=== PATIENT | female | born 1990 | race Caucasian/White ===

== ENCOUNTER → 2016-07-12 | Outpatient (REF) | payer BC, OTHER | LOC: M LAB REF 15:37 | PROVIDERS: ATTEND Family Medicine | DX: Z12.4 Encounter for screening for malignant neoplasm of cervix (principal) ==

== ENCOUNTER → 2017-02-17 | Outpatient (REF) | payer OTHER | LOC: M LAB REF 09:18 | PROVIDERS: ATTEND Physician Assistant | DX: J02.9 Acute pharyngitis, unspecified (principal) ==

== ENCOUNTER → 2017-02-28 | Outpatient (CLI) | payer BC, OTHER ==
--- NOTE | 2017-03-04 16:57 | REP ---
ULTRASOUND LEFT BREAST: Real-time sonographic evaluation of the left breast is performed. Comparison is made with prior study 03/21/2011 performed in [place], [place] at [facility]. A small cyst is seen at the 4-o'clock region, 6 mm in diameter. There is a large solid appearing nodule with lobulated margins, which is heterogeneous in echotexture, measuring 2.8 x 2.3 x 4.0 cm. This is close to the nipple. Comparison to the prior ultrasound this has increased in size. Prior measurements were 2.6 cm maximally. Reportedly the biopsy was benign. Using the same measurements planes on the old exam that we used on the current exam, the maximum diameter on the prior study was 3.5 cm. Therefore, the mass has only grown about 5 mm in approximately 6 years, compatible with a benign entity. IMPRESSION: Only minimal increase in size of solid nodule left breast 4-o'clock region when compared to the prior study of 03/21/2011. ACR 2 benign. Signed by Gregorio Miranda MD 03/04/2017 05:26 P
== END ==
LOC: M RAD 09:01
PROVIDERS: ATTEND Family Medicine
DX: D17.1 Benign lipomatous neoplasm of skin and subcutaneous tissue of trunk (principal); N60.02 Solitary cyst of left breast

== ENCOUNTER → 2017-05-24 | Outpatient (CLI) | payer OTHER | LOC: M ADAMS 10:51 | PROVIDERS: ATTEND Physician Assistant Medical | DX: J02.9 Acute pharyngitis, unspecified (principal) ==

== ENCOUNTER → 2018-01-26 | Outpatient (REF) | payer OTHER ==
[2018-01-31 14:50] LABS: HPV HYBRID CAPTURE II Negative (Negative)
== END ==
LOC: M LAB REF 17:54
DX: B37.3 Candidiasis of vulva and vagina (principal); Z12.4 Encounter for screening for malignant neoplasm of cervix; R87.610 Atypical squamous cells of undetermined significance on cytologic smear of cervix (ASC-US)
CPT/HCPCS: 87070

== ENCOUNTER → 2018-01-26 | Outpatient (REF) | payer OTHER ==
[2018-01-26 20:48] LABS: CHLAMYDIA DNA AMPLIFICATION NEGATIVE (NEGATIVE); GC DNA AMPLIFICATION NEGATIVE (NEGATIVE)
== END ==
LOC: M LAB REF 17:39
DX: Z11.3 Encounter for screening for infections with a predominantly sexual mode of transmission (principal)
CPT/HCPCS: 87591

== ENCOUNTER → 2019-03-30 | Outpatient (CLI) | payer BC ==
[2019-03-30 19:21] LABS: CHLAMYDIA DNA AMPLIFICATION NEGATIVE (NEGATIVE); GC DNA AMPLIFICATION NEGATIVE (NEGATIVE)
[2019-03-31 10:27] LABS: HEPATITIS C VIRUS ABY INDEX 0.1 INDEX (<0.8); HIV 1&2 SCREEN CENTAUR NEGATIVE (NEGATIVE)
== END ==
LOC: M SMT 14:34
PROVIDERS: ATTEND Specialist
DX: Z11.3 Encounter for screening for infections with a predominantly sexual mode of transmission (principal)

== ENCOUNTER → 2019-04-19 | Outpatient (CLI) | payer BC ==
--- NOTE | 2019-04-19 13:16 | REP ---
Five views right knee: 04/19/2019. Indication: Right knee pain. Comparison: 12/05/2006. Findings: There is minimal marginal spurring of the distal medial tibia. Joint space height is maintained. There are no loose bodies detected. A small suprapatellar effusion is present without acute fracture detected. No erosive osseous lesions are noted. Impression: No acute fracture. Small suprapatellar effusion. Electronically Signed by Rafi Doyle DO 04/19/2019 01:07 P
== END ==
LOC: M WUC 09:04
PROVIDERS: ATTEND Nurse Practitioner Family
DX: M25.561 Pain in right knee (principal); M25.461 Effusion, right knee

== ENCOUNTER → 2019-08-16 | Outpatient (REF) | payer BC | LOC: M LAB REF 15:53 | PROVIDERS: ATTEND Nurse Practitioner Family | DX: J02.9 Acute pharyngitis, unspecified (principal) ==

== ENCOUNTER → 2020-04-05 | Outpatient (REF) | payer BC | LOC: M LAB REF 17:19 | PROVIDERS: ATTEND Family Medicine | DX: N39.0 Urinary tract infection, site not specified (principal) ==

== ENCOUNTER → 2020-05-02 | Outpatient (REF) | payer BC | LOC: M LAB REF 16:53 | PROVIDERS: ATTEND Physician Assistant | DX: N76.0 Acute vaginitis (principal) ==

== ENCOUNTER → 2020-05-12 | Outpatient (REF) | payer BC | LOC: M LAB REF 15:27 | PROVIDERS: ATTEND Family Medicine | DX: N93.0 Postcoital and contact bleeding (principal) ==

== ENCOUNTER → 2020-12-26 | Outpatient (REF) | payer BC | LOC: M WUC 12:08 | PROVIDERS: ATTEND Nurse Practitioner Family | DX: J02.9 Acute pharyngitis, unspecified (principal) ==

== ENCOUNTER → 2021-01-10 | Outpatient (REF) | payer BC | LOC: M LAB REF 17:36 | PROVIDERS: ATTEND Physician Assistant | DX: N39.0 Urinary tract infection, site not specified (principal) ==

== ENCOUNTER → 2021-12-07 | Outpatient (REF) | payer BC | LOC: M LAB REF 14:54 | PROVIDERS: ATTEND Family Medicine | DX: N76.0 Acute vaginitis (principal); R30.0 Dysuria ==

== ENCOUNTER → 2022-03-27 | Outpatient (REF) | payer BC ==
[2022-03-27 20:34] LABS: GC DNA AMPLIFICATION NEGATIVE (NEGATIVE)
== END ==
LOC: M LAB REF 16:53
PROVIDERS: ATTEND Nurse Practitioner Adult Health
DX: N89.8 Other specified noninflammatory disorders of vagina (principal); N76.4 Abscess of vulva

== ENCOUNTER → 2022-05-17 | Outpatient (REF) | payer BC | LOC: M PLALAB 10:28 | PROVIDERS: ATTEND Nurse Practitioner Family | DX: Z53.20 Procedure and treatment not carried out because of patient's decision for unspecified reasons (principal) ==

== ENCOUNTER 2025-03-19 09:55 | Emergency (ER) | payer BC ==
[~2025-03-19] VITALS: Ht 162.6 cm; Wt 71.3 kg
[2025-03-19 11:03] LABS: PLATELET COUNT, AUTOMATED 368 10^3/uL (150-450)
[2025-03-19 16:46] VITALS: BP 105/59; TEMP 97.5; O2SAT 97
== END 2025-03-19 16:48 | disposition home or self-care (01) ==
LOC: M ED 09:55
DX: O20.0 Threatened abortion (principal); Z3A.01 Less than 8 weeks gestation of pregnancy